=== PATIENT | female | born 1960 | race Caucasian/White ===

== ENCOUNTER 2020-02-28 14:47 | Inpatient (IN) | payer OTHER ==
[~2020-02-28] VITALS: Ht 167.6 cm; Wt 70.4 kg
[2020-02-28] MEDS ORDERED: KETOROLAC TROMETHAMINE 30 MG INJ ONE (15:42)
[2020-02-28] MEDS ORDERED: KETOROLAC TROMETHAMINE 30 MG INJ IM ONE (15:45)
[2020-02-28] MEDS ORDERED: BYSTOLIC PO (15:53)
[2020-02-28] MEDS ORDERED: KEPPRA PO (15:53)
[2020-02-28] MEDS ORDERED: LISINOPRIL PO (15:53)
[2020-02-28] MEDS ORDERED: TRAZODONE PO (15:53)
[2020-02-28] MEDS ORDERED: ABILIFY PO (15:53)
[2020-02-28] MEDS ORDERED: ALPR2TAB7 PO (15:53)
[2020-02-28] MEDS ORDERED: CLON0.2T PO (15:53)
[2020-02-28] MEDS ORDERED: IBUP-1955 PO (15:53)
[2020-02-28] MEDS ORDERED: CLON2TAB PO (15:53)
[2020-02-28] MEDS ORDERED: LIDOCAINE 5% PATCH TD ONE ×2 (17:12→17:15)
[2020-02-28] MEDS ORDERED: HYDROMORPHONE 1 MG/1 ML DISP.SYRIN ONE (17:12)
[2020-02-28] MEDS ORDERED: ONDANSETRON 4 MG/2 ML VIAL ONE (17:12)
[2020-02-28] MEDS ORDERED: ONDANSETRON 4 MG/2 ML VIAL IM ONE (17:15)
[2020-02-28] MEDS ORDERED: HYDROMORPHONE 1 MG/1 ML DISP.SYRIN IM ONE (17:15)
[2020-02-28 17:32] LABS: BASOPHILS % (AUTO) 0.5 % (0.0-2.0); EOSINOPHILS % (AUTO) 0.2 % (0.0-7.0); HEMATOCRIT 38.1 % (31.2-41.9); LYMPHOCYTES # (AUTO) 1.6 K/uL (20.0-40.0); LYMPHOCYTES % (AUTO) 17.4 % (20.5-51.5); MEAN CORPUSCULAR HEMOGLOBIN 31.1 uug (24.7-32.8); MEAN CORPUSCULAR HGB CONC 34 g/dL (32.3-35.6); MEAN CORPUSCULAR VOLUME 91.1 fL (75.5-95.3); MONOCYTES # (AUTO) 1.1 K/uL (2.0-10.0); MONOCYTES % (AUTO) 11.4 % (0.0-11.0); NEUTROPHILS # (AUTO) 6.6 K/uL (1.8-8.9); NEUTROPHILS % (AUTO) 70.5 % (38.5-71.5); PLATELET COUNT (AUTO) 201 K/uL (179-408); RED BLOOD CELL COUNT(AUTO) 4.18 MIL/uL (3.63-4.92); WHITE BLOOD COUNT (AUTO) 9.4 K/uL (3.8-11.8)
[2020-02-28 17:48] LABS: BILIRUBIN,TOTAL 0.7 mg/dL (0.2-1.0); CREATININE 1.2 mg/dL (0.6-1.3); POTASSIUM 4.7 mmol/L (3.5-5.1)
[2020-02-28] MEDS ORDERED: ACETAMINOPHEN 325 MG TABLET PO PRN (18:45)
[2020-02-28] MEDS ORDERED: OXYCODONE/APAP 5-325 MG TABLET PO PRN (18:45)
[2020-02-28] MEDS ORDERED: MAGNESIUM HYDROXIDE 30 ML LIQUID UDC PO PRN (18:45)
[2020-02-28] MEDS ORDERED: ZOLPIDEM 5 MG TABLET PO PRN (18:45)
[2020-02-28] MEDS ORDERED: Z GUARD REMEDY PASTE 57 GM TUBE TOP PRN (18:45)
[2020-02-28] MEDS ORDERED: ONDANSETRON 4 MG/2 ML VIAL IV PRN (18:45)
[2020-02-28 18:52] VITALS: BP 142/77
[2020-02-28] MEDS ORDERED: IBUPROFEN 400 MG TABLET PO PRN (19:15)
[2020-02-28] MEDS: HYDROMORPHONE 1 MG/1 ML DISP.SYRIN IV PRN (19:57)
[2020-02-28] MEDS: levETIRAcetam 500 MG/5 ML LIQUID UDC NG SCH (20:00)
[2020-02-28] MEDS: DOCUSATE SODIUM 100 MG CAPSULE PO SCH (20:00)
[2020-02-28] MEDS: LORAZEPAM 2 MG/1 ML VIAL IV PRN (23:24)
[2020-02-29] MEDS: HYDROMORPHONE 1 MG/1 ML DISP.SYRIN IV PRN ×3 (01:20→11:54)
[2020-02-29 04:49] VITALS: BP 120/66
[2020-02-29] MEDS: PANTOPRAZOLE SODIUM 40 MG TABLET.DR PO SCH (06:15)
[2020-02-29] MEDS: levETIRAcetam 500 MG/5 ML LIQUID UDC NG SCH ×2 (08:01→20:05)
[2020-02-29 11:19] VITALS: BP 115/77
[2020-02-29 15:15] LABS: BASOPHILS % (AUTO) 0.4 % (0.0-2.0); EOSINOPHILS # (AUTO) 0.1 K/uL (0.0-0.7); EOSINOPHILS % (AUTO) 1.6 % (0.0-7.0); HEMATOCRIT 37.5 % (31.2-41.9); HEMOGLOBIN 12.5 g/dL (10.9-14.3); LYMPHOCYTES # (AUTO) 1.4 K/uL (20.0-40.0); LYMPHOCYTES % (AUTO) 23.4 % (20.5-51.5); MEAN CORPUSCULAR HEMOGLOBIN 30.6 uug (24.7-32.8); MEAN CORPUSCULAR HGB CONC 33 g/dL (32.3-35.6); MEAN CORPUSCULAR VOLUME 91.4 fL (75.5-95.3); MONOCYTES # (AUTO) 0.9 K/uL (2.0-10.0); MONOCYTES % (AUTO) 13.9 % (0.0-11.0); NEUTROPHILS # (AUTO) 3.7 K/uL (1.8-8.9); NEUTROPHILS % (AUTO) 60.7 % (38.5-71.5); PLATELET COUNT (AUTO) 165 K/uL (179-408); WHITE BLOOD COUNT (AUTO) 6.1 K/uL (3.8-11.8)
[2020-02-29 15:28] LABS: CREATININE 1.1 mg/dL (0.6-1.3); PHOSPHOROUS 3.8 mg/dL (2.5-4.9); POTASSIUM 4.5 mmol/L (3.5-5.1)
[2020-02-29 15:49] VITALS: BP 98/62
[2020-02-29 15:52] LABS: MAGNESIUM 1.2 mg/dL (1.8-2.4)
[2020-02-29] MEDS ORDERED: MAGNESIUM OXIDE 400 MG TABLET PO ONE (16:00)
[2020-02-29] MEDS: LORAZEPAM 2 MG/1 ML VIAL IV PRN (19:47)
[2020-02-29 20:00] VITALS: BP 122/66
[2020-02-29] MEDS: DOCUSATE SODIUM 100 MG CAPSULE PO SCH (20:05)
[2020-03-01] MEDS: HYDROMORPHONE 1 MG/1 ML DISP.SYRIN IV PRN ×3 (00:55→15:43)
[2020-03-01 04:00] VITALS: BP 126/76
[2020-03-01] MEDS: PANTOPRAZOLE SODIUM 40 MG TABLET.DR PO SCH (06:04)
[2020-03-01 07:30] VITALS: BP 138/94
[2020-03-01 08:15] LABS: BASOPHILS % (AUTO) 0.5 % (0.0-2.0); EOSINOPHILS # (AUTO) 0.1 K/uL (0.0-0.7); EOSINOPHILS % (AUTO) 1.5 % (0.0-7.0); HEMOGLOBIN 12.9 g/dL (10.9-14.3); LYMPHOCYTES # (AUTO) 1.7 K/uL (20.0-40.0); LYMPHOCYTES % (AUTO) 28.3 % (20.5-51.5); MEAN CORPUSCULAR HEMOGLOBIN 31.2 uug (24.7-32.8); MEAN CORPUSCULAR HGB CONC 34 g/dL (32.3-35.6); MONOCYTES # (AUTO) 0.8 K/uL (2.0-10.0); NEUTROPHILS # (AUTO) 3.5 K/uL (1.8-8.9); NEUTROPHILS % (AUTO) 56.7 % (38.5-71.5); PLATELET COUNT (AUTO) 182 K/uL (179-408); RED BLOOD CELL COUNT(AUTO) 4.13 MIL/uL (3.63-4.92); WHITE BLOOD COUNT (AUTO) 6.1 K/uL (3.8-11.8)
[2020-03-01 08:16] LABS: POTASSIUM 4.3 mmol/L (3.5-5.1)
[2020-03-01] MEDS: levETIRAcetam 500 MG/5 ML LIQUID UDC NG SCH (08:24)
[2020-03-01 15:51] VITALS: BP 148/102
== END 2020-03-01 16:30 | DRG 347 ==
LOC: ER 14:49 → MEDSURG3 18:21
PROVIDERS: ADMIT Nurse Practitioner Acute Care; ATTEND Nurse Practitioner Acute Care
DX: S32.019A Unspecified fracture of first lumbar vertebra, initial encounter for closed fracture (principal); W01.0XXA Fall on same level from slipping, tripping and stumbling without subsequent striking against object, initial encounter; G40.909 Epilepsy, unspecified, not intractable, without status epilepticus; Z79.899 Other long term (current) drug therapy; E66.9 Obesity, unspecified; F41.9 Anxiety disorder, unspecified; G89.4 Chronic pain syndrome; F12.90 Cannabis use, unspecified, uncomplicated; I10 Essential (primary) hypertension; Z79.891 Long term (current) use of opiate analgesic; R74.0 Nonspecific elevation of levels of transaminase and lactic acid dehydrogenase [LDH]; Y93.9 Activity, unspecified; R79.89 Other specified abnormal findings of blood chemistry; Y92.009 Unspecified place in unspecified non-institutional (private) residence as the place of occurrence of the external cause; M51.36 Other intervertebral disc degeneration, lumbar region; M47.896 Other spondylosis, lumbar region
CPT/HCPCS: 36415; 71045; 72072; 72100; 83735; 84100; 85025; 93005; A4663; G0378; J1170; J1885; J2060; J2405